=== PATIENT | female | born 1945 | race Caucasian/White ===

== ENCOUNTER 2023-09-11 13:40 | Outpatient (AMB) | payer MEDICARE, SELFPAY ==
[2023-09-11 14:17] VITALS: BP 136/80; PULSE 66; BMI 25.5
--- NOTE | 2023-09-11 14:17 | HO.NEPHOV_ITS ---
HPI HPI Comments History of Present Illness Details I had the privilege of seeing Kamila in follow-up of her chronic kidney disease stage 4. Her blood sugar is well controlled now. She does not have any joint pains or gout symptoms. She denies chest pain, shortness of breath, proximal nocturnal dyspnea, orthopnea, pedal edema, hypoglycemia or orthostatic symptoms. She does not take any nonsteroidal anti-inflammatory medications. Her urine output is good. She feels well but is concerned about her low GFR. She was accompanied by her in the office today. 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 Idiopathic gout Hyperlipidemia Essential hypertension Chronic kidney disease, stage 5 Anemia in chronic kidney disease Surgical History (Updated 09/11/23 @ 14:26 by Savanah Stoddard MA) Heart valve replaced Hx of CABG History of hip replacement History of open heart surgery History of cholecystectomy History of hysterectomy Presence of aortocoronary bypass graft Family History (Updated 09/11/23 @ 14:27 by Savanah Stoddard MA) Father Heart disease Mother Cancer (Updated 09/11/23 @ 14:27 by Savanah Stoddard MA) Alcohol intake: current Alcohol type: wine Patient Tobacco Use Status: Never used Tobacco Vital Signs 09/11/23 14:17 Height 5 ft 5 in Weight 153 lb 8 oz BMI 25.5 BP 136/80 Blood Pressure Location Lt brachial Position Sitting Pulse 66 Pulse Source Pulse Oximeter Physical Exam Vital Signs: Last Vital Signs Pulse 66 09/11/23 14:17 BP 136/80 09/11/23 14:17 BMI result Body Mass Index 25.5 Const General: comfortable and no acute distress Orientation/consciousness: patient oriented x3 HEENT Head: Yes normocephalic Mouth: Normal oral and palatal mucosa present Eyes EOM: EOMs intact bilaterally Neck Neck: Yes supple Resp Auscultation: clear to auscultation bilaterally Cardio Jugular venous distension: no JVD Rate: regular rate GI Palpation (GI): Soft to palpation Auscultation: normal bowel sounds General: Yes no CVA tenderness Back/Spine/Pelvis Back: no CVA tenderness Skin General skin exam: no rashes or lesions noted Neuro General: patient oriented x3 and moves all extremities Extrem General: Yes no pedal edema Assessment & Plan Assessment & Plan (1) CKD (chronic kidney disease) stage 4, GFR 15-29 ml/min: Code(s): N18.4 - Chronic kidney disease, stage 4 (severe) Plan Kamila has CKD stage 4. Her renal functions currently stable. Blood pressure is at goal. Her volume status is optimal. Her hemoglobin is over 11. She is a great candidate for Farxiga given diabetes, CKD and cardiac dysfunction. She avoids nonsteroidal anti-inflammatory medications. I did not make any medication changes today but had ordered blood work and urine studies. I intend initiate her on Farxiga at the next visit, if possible. All her and her 's questions were answered. Follow-up given. Time spent for retrieval of data, documentation and patient encounter 24 minutes. Orders: Orders Electrolytes 09/11/23 N18.4 - Chronic kidney disease, stage 4 (severe) Protein Creatinine Ratio, Ur 09/11/23 N18.4 - Chronic kidney disease, stage 4 (severe) Creatinine 09/11/23 N18.4 - Chronic kidney disease, stage 4 (severe) Blood Urea Nitrogen 09/11/23 N18.4 - Chronic kidney disease, stage 4 (severe) Coding Level of Care Code Est Pt Level 3 (32085) Diagnoses CKD (chronic kidney disease) stage 4, GFR 15-29 ml/min N18.4
== END 2023-09-11 15:16 | disposition home or self-care (01) ==
PROVIDERS: PCP Internal Medicine; Visit Provider Internal Medicine Nephrology
DX: N18.4 Chronic kidney disease, stage 4 (severe) (principal)
CPT/HCPCS: 99213

== ENCOUNTER → 2023-09-11 13:40 | Outpatient (BNVA) | payer MEDICARE, SELFPAY | PROVIDERS: PCP Internal Medicine; Visit Provider Internal Medicine Nephrology | DX: N18.4 Chronic kidney disease, stage 4 (severe) (principal) | CPT/HCPCS: 99212 ==

== ENCOUNTER 2023-12-13 10:52 | Outpatient (AMB) | payer MEDICARE, SELFPAY ==
--- NOTE | 2023-12-13 11:24 | HO.NEPHOV_ITS ---
HPI HPI Comments History of Present Illness Details I had the privilege of seeing Kamila in follow-up of her chronic kidney disease stage 4. Her blood sugar is well controlled now. She does not have any joint pains or gout symptoms. She denies chest pain, shortness of breath, proximal nocturnal dyspnea, orthopnea, pedal edema, hypoglycemia or orthostatic symptoms. She does not take any nonsteroidal anti-inflammatory medications. Her urine output is good. She had not been strict with a low-sodium diet and has gained a few lb without any edema or shortness of breath. There were no new active complaints at the time of this office visit. 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 Idiopathic gout Hyperlipidemia Essential hypertension Chronic kidney disease, stage 5 Anemia in chronic kidney disease Surgical History Heart valve replaced Hx of CABG History of hip replacement History of open heart surgery History of cholecystectomy History of hysterectomy Presence of aortocoronary bypass graft Family History Father Heart disease Mother Cancer Social History Alcohol intake: current Alcohol type: wine Patient Tobacco Use Status: Never used Tobacco Vital Signs 12/13/23 11:25 Height 5 ft 5 in Weight 164 lb 4 oz BMI 27.3 BP 160/72 H Blood Pressure Location Rt brachial Position Sitting Pulse 62 Pulse Source Pulse Oximeter Pulse Oximetry (%) 97 Oxygen Delivery Method Room Air Physical Exam Vital Signs: Last Vital Signs Pulse 62 12/13/23 11:25 BP 160/72 H 12/13/23 11:25 Pulse Ox 97 12/13/23 11:25 Oxygen Delivery Method Room Air 12/13/23 11:25 BMI result Body Mass Index 27.3 Const General: comfortable and no acute distress Orientation/consciousness: patient oriented x3 HEENT Head: Yes normocephalic Mouth: Normal oral and palatal mucosa present Eyes EOM: EOMs intact bilaterally Neck Neck: Yes supple Resp Auscultation: clear to auscultation bilaterally Cardio Jugular venous distension: no JVD Rate: regular rate GI Palpation (GI): Soft to palpation Auscultation: normal bowel sounds General: Yes no CVA tenderness Back/Spine/Pelvis Back: no CVA tenderness Skin General skin exam: no rashes or lesions noted Neuro General: patient oriented x3 and moves all extremities Extrem General: Yes no pedal edema Assessment & Plan Assessment & Plan (1) CKD (chronic kidney disease) stage 4, GFR 15-29 ml/min: Code(s): N18.4 - Chronic kidney disease, stage 4 (severe) (2) Essential hypertension: Code(s): I10 - Essential (primary) hypertension Plan Kamila has CKD stage 4. Her renal functions had been stable. I ordered a 24 hour urine collection for creatinine clearance. Blood pressure is at goal. Her volume status is optimal. Her hemoglobin is close to goal. She is a great candidate for Farxiga given diabetes, CKD and cardiac dysfunction. I shall initiate her on it if her GFR is appropriate based on the next 24 hour urine collection for creatinine clearance she is doing prior to next office visit. She avoids nonsteroidal anti-inflammatory medications. I did not make any medication changes today but had ordered blood work and urine studies. All her and her 's questions were answered. Follow-up given. Orders: Orders Creatinine Clearance Urine 12/13/23 N18.4 - Chronic kidney disease, stage 4 (severe) Coding Level of Care Code Est Pt Level 3 (22298) Diagnoses CKD (chronic kidney disease) stage 4, GFR 15-29 ml/min N18.4 Essential hypertension I10 Results Reviewed Nephrology Results: No Data to Display
[2023-12-13 11:25] VITALS: BP 160/72; PULSE 62; O2SAT 97; BMI 27.3
== END 2023-12-13 12:04 | disposition home or self-care (01) ==
PROVIDERS: PCP Internal Medicine; Visit Provider Internal Medicine Nephrology
DX: I12.9 Hypertensive chronic kidney disease with stage 1 through stage 4 chronic kidney disease, or unspecified chronic kidney disease (principal); N18.4 Chronic kidney disease, stage 4 (severe)
CPT/HCPCS: 99213

== ENCOUNTER → 2023-12-13 10:52 | Outpatient (BNVA) | payer MEDICARE, SELFPAY | PROVIDERS: PCP Internal Medicine; Visit Provider Internal Medicine Nephrology | DX: I12.9 Hypertensive chronic kidney disease with stage 1 through stage 4 chronic kidney disease, or unspecified chronic kidney disease (principal); N18.4 Chronic kidney disease, stage 4 (severe) | CPT/HCPCS: 99212 ==

== ENCOUNTER 2024-01-08 13:21 | Outpatient (AMB) | payer MEDICARE, SELFPAY ==
--- NOTE | 2024-01-08 13:35 | HO.NEPHOV ---
HPI HPI Comments History of Present Illness Details I had the privilege of seeing Kamila in follow-up of her chronic kidney disease stage 4. Her blood sugar is well controlled now. She does not have any joint pains or gout symptoms. She denies chest pain, shortness of breath, proximal nocturnal dyspnea, orthopnea, pedal edema, hypoglycemia or orthostatic symptoms. She does not take any nonsteroidal anti-inflammatory medications. Her urine output is good. She had not been strict with a low-sodium diet and has gained a few lb without any edema or shortness of breath. There were no new active complaints at the time of this office visit. 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 Idiopathic gout Hyperlipidemia Essential hypertension Chronic kidney disease, stage 5 Anemia in chronic kidney disease Surgical History Heart valve replaced Hx of CABG History of hip replacement History of open heart surgery History of cholecystectomy History of hysterectomy Presence of aortocoronary bypass graft Family History Father Heart disease Mother Cancer Social History Alcohol intake: current Alcohol type: wine Patient Tobacco Use Status: Never used Tobacco Vital Signs 01/08/24 13:36 Height 5 ft 5 in Weight 160 lb 4 oz BMI 26.7 BP 164/82 H Blood Pressure Location Lt brachial Position Sitting Pulse 62 Pulse Source Pulse Oximeter Pulse Oximetry (%) 98 Oxygen Delivery Method Room Air Physical Exam Vital Signs: Last Vital Signs Pulse 62 01/08/24 13:36 BP 164/82 H 01/08/24 13:36 Pulse Ox 98 01/08/24 13:36 Oxygen Delivery Method Room Air 01/08/24 13:36 BMI result Body Mass Index 26.7 Const General: comfortable and no acute distress Orientation/consciousness: patient oriented x3 HEENT Head: Yes normocephalic Mouth: Normal oral and palatal mucosa present Eyes EOM: EOMs intact bilaterally Neck Neck: Yes supple Resp Auscultation: clear to auscultation bilaterally Cardio Jugular venous distension: no JVD Rate: regular rate GI Palpation (GI): Soft to palpation Auscultation: normal bowel sounds General: Yes no CVA tenderness Back/Spine/Pelvis Back: no CVA tenderness Skin General skin exam: no rashes or lesions noted Neuro General: patient oriented x3 and moves all extremities Extrem General: Yes no pedal edema Assessment & Plan Assessment & Plan (1) CKD (chronic kidney disease) stage 4, GFR 15-29 ml/min: Code(s): N18.4 - Chronic kidney disease, stage 4 (severe) (2) Essential hypertension: Code(s): I10 - Essential (primary) hypertension Plan Kamila has CKD stage 4. Her renal functions had been stable. 24 hour urine collection for creatinine clearance showed it to be 16.2 mls/minute. Blood pressure is at goal. Her volume status is optimal. Her hemoglobin is close to goal. I started her on Farxiga 2.5 mg given diabetes, CKD and cardiac dysfunction. I asked her to reduce Lantus to 16 mts when she starts Farxiga. She avoids nonsteroidal anti-inflammatory medications. I did not make any other medication changes today but had ordered follow up blood work and urine studies. All her and her 's questions were answered. Orders: Orders Blood Urea Nitrogen Today I10 - Essential (primary) hypertension, N18.4 - Chronic kidney disease, stage 4 (severe) Electrolytes Today I10 - Essential (primary) hypertension, N18.4 - Chronic kidney disease, stage 4 (severe) Creatinine Today I10 - Essential (primary) hypertension, N18.4 - Chronic kidney disease, stage 4 (severe) Medications: New dapagliflozin propanediol (Farxiga) 2.5 mg (1/2 x 5 mg) PO DAILY 30 days 15 tabs 2RF Coding Level of Care Code Est Pt Level 4 (24000) Diagnoses CKD (chronic kidney disease) stage 4, GFR 15-29 ml/min N18.4 Essential hypertension I10 Results Reviewed Nephrology Results: No Data to Display
[2024-01-08 13:36] VITALS: BP 164/82; PULSE 62; O2SAT 98; BMI 26.7
== END 2024-01-08 14:15 | disposition home or self-care (01) ==
PROVIDERS: PCP Internal Medicine; Visit Provider Internal Medicine Nephrology
DX: I12.9 Hypertensive chronic kidney disease with stage 1 through stage 4 chronic kidney disease, or unspecified chronic kidney disease (principal); N18.4 Chronic kidney disease, stage 4 (severe)
CPT/HCPCS: 99214

== ENCOUNTER → 2024-01-08 13:21 | Outpatient (BNVA) | payer MEDICARE, SELFPAY | PROVIDERS: PCP Internal Medicine; Visit Provider Internal Medicine Nephrology | DX: I12.9 Hypertensive chronic kidney disease with stage 1 through stage 4 chronic kidney disease, or unspecified chronic kidney disease (principal); N18.4 Chronic kidney disease, stage 4 (severe) | CPT/HCPCS: 99212 ==

== ENCOUNTER 2024-03-06 09:19 | Outpatient (AMB) | payer MEDICARE, SELFPAY ==
--- NOTE | 2024-03-06 09:32 | HO.NEPHOV_ITS ---
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 Her blood sugar is well controlled now. She does not have any joint pains or gout symptoms. She denies chest pain, shortness of breath, proximal nocturnal dyspnea, orthopnea, pedal edema, hypoglycemia or orthostatic symptoms. She does not take any nonsteroidal anti-inflammatory medications. Her urine output is good. She had not been strict with a low-sodium diet and has gained a few lb without any edema or shortness of breath. There were no new active complaints at the time of this office visit. 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 Idiopathic gout Hyperlipidemia Essential hypertension Chronic kidney disease, stage 5 Anemia in chronic kidney disease Surgical History Heart valve replaced Hx of CABG History of hip replacement History of open heart surgery History of cholecystectomy History of hysterectomy Presence of aortocoronary bypass graft Family History Father Heart disease Mother Cancer Social History Alcohol intake: current Alcohol type: wine Patient Tobacco Use Status: Never used Tobacco Physical Exam Vital Signs: Last Vital Signs Pulse 61 03/06/24 09:33 BP 166/80 H 03/06/24 09:33 Pulse Ox 97 03/06/24 09:33 Oxygen Delivery Method Room Air 03/06/24 09:33 BMI result Body Mass Index 27.5 Const General: comfortable and no acute distress Orientation/consciousness: patient oriented x3 HEENT Head: Yes normocephalic Mouth: Normal oral and palatal mucosa present Eyes EOM: EOMs intact bilaterally Neck Neck: Yes supple Resp Auscultation: clear to auscultation bilaterally Cardio Jugular venous distension: no JVD Rate: regular rate GI Palpation (GI): Soft to palpation Auscultation: normal bowel sounds General: Yes no CVA tenderness Back/Spine/Pelvis Back: no CVA tenderness Skin General skin exam: no rashes or lesions noted Neuro General: patient oriented x3 and moves all extremities Extrem General: Yes no pedal edema Results Reviewed Nephrology Results: No Data to Display Assessment & Plan Assessment & Plan (1) CKD (chronic kidney disease) stage 4, GFR 15-29 ml/min: Code(s): N18.4 - Chronic kidney disease, stage 4 (severe) Category: Medical (2) Essential hypertension: Code(s): I10 - Essential (primary) hypertension Category: Medical Plan Kamila has CKD stage 4. Her renal functions had been stable. 24 hour urine collection for creatinine clearance showed it to be 16.2 mls/minute. Blood pressure is at goal. Her volume status is optimal. Her hemoglobin is close to goal. C/W with Farxiga 2.5 mg given diabetes, CKD and cardiac dysfunction. She avoids nonsteroidal anti-inflammatory medications. I did not make any other medication changes today but had ordered follow up blood work and urine studies. All her and her son's questions were answered. Orders: Orders Creatinine Today I10 - Essential (primary) hypertension, N18.4 - Chronic kidney disease, stage 4 (severe) Electrolytes Today I10 - Essential (primary) hypertension, N18.4 - Chronic kidney disease, stage 4 (severe) Complete Blood Count Auto Diff Today I10 - Essential (primary) hypertension, N18.4 - Chronic kidney disease, stage 4 (severe) Blood Urea Nitrogen Today I10 - Essential (primary) hypertension, N18.4 - Chronic kidney disease, stage 4 (severe) Calcium Today I10 - Essential (primary) hypertension, N18.4 - Chronic kidney disease, stage 4 (severe) Coding Level of Care Code Est Pt Level 4 (85600) Diagnoses CKD (chronic kidney disease) stage 4, GFR 15-29 ml/min N18.4 Essential hypertension I10
[2024-03-06 09:33] VITALS: BP 166/80; PULSE 61; O2SAT 97; BMI 27.5
== END 2024-03-06 09:58 | disposition home or self-care (01) ==
PROVIDERS: PCP Internal Medicine; Visit Provider Internal Medicine Nephrology
DX: I12.9 Hypertensive chronic kidney disease with stage 1 through stage 4 chronic kidney disease, or unspecified chronic kidney disease (principal); E11.22 Type 2 diabetes mellitus with diabetic chronic kidney disease; N18.4 Chronic kidney disease, stage 4 (severe)
CPT/HCPCS: 99214

== ENCOUNTER → 2024-03-06 09:19 | Outpatient (BNVA) | payer MEDICARE, SELFPAY | PROVIDERS: PCP Internal Medicine; Visit Provider Internal Medicine Nephrology | DX: I12.9 Hypertensive chronic kidney disease with stage 1 through stage 4 chronic kidney disease, or unspecified chronic kidney disease (principal); N18.4 Chronic kidney disease, stage 4 (severe) | CPT/HCPCS: 99212 ==

== ENCOUNTER 2024-06-10 09:30 | Outpatient (AMB) | payer MEDICARE, SELFPAY ==
[2024-06-10 09:31] VITALS: BP 150/72; PULSE 60; O2SAT 96; BMI 27.6
--- NOTE | 2024-06-10 09:31 | HO.NEPHOV_ITS ---
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 Her blood sugar is well controlled now. She does not have any joint pains or gout symptoms. She denies chest pain, shortness of breath, proximal nocturnal dyspnea, orthopnea, pedal edema, hypoglycemia or orthostatic symptoms. She does not take any nonsteroidal anti-inflammatory medications. Her urine output is good. There were no new active complaints at the time of this office visit. 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 Idiopathic gout Hyperlipidemia Essential hypertension Chronic kidney disease, stage 5 Anemia in chronic kidney disease Surgical History Heart valve replaced Hx of CABG History of hip replacement History of open heart surgery History of cholecystectomy History of hysterectomy Presence of aortocoronary bypass graft Family History Father Heart disease Mother Cancer Social History Alcohol intake: current Alcohol type: wine Patient Tobacco Use Status: Never used Tobacco Review of Systems Const All systems reviewed & are unremarkable except as noted in HPI and below Physical Exam Vital Signs: Last Vital Signs Pulse 60 06/10/24 09:31 BP 150/72 H 06/10/24 09:31 Pulse Ox 96 06/10/24 09:31 Oxygen Delivery Method Room Air 06/10/24 09:31 BMI result Body Mass Index 27.6 Const General: comfortable and no acute distress Orientation/consciousness: patient oriented x3 HEENT Head: Yes normocephalic Mouth: Normal oral and palatal mucosa present Eyes EOM: EOMs intact bilaterally Neck Neck: Yes supple Resp Auscultation: clear to auscultation bilaterally Cardio Jugular venous distension: no JVD Rate: regular rate GI Palpation (GI): Soft to palpation Auscultation: normal bowel sounds General: Yes no CVA tenderness Back/Spine/Pelvis Back: no CVA tenderness Skin General skin exam: no rashes or lesions noted Neuro General: patient oriented x3 and moves all extremities Extrem General: Yes no pedal edema Results Reviewed Nephrology Results: No Data to Display Assessment & Plan Assessment & Plan (1) CKD (chronic kidney disease) stage 4, GFR 15-29 ml/min: Code(s): N18.4 - Chronic kidney disease, stage 4 (severe) Category: Medical (2) Essential hypertension: Code(s): I10 - Essential (primary) hypertension Category: Medical Plan Kamila has CKD stage 4. Her renal functions had been stable. 24 hour urine collection for creatinine clearance showed it to be 16.2 mls/minute. Blood pressure has been at goal. Her volume status is optimal. Her hemoglobin is close to goal. C/W with Farxiga 2.5 mg given diabetes, CKD and cardiac dysf unction. She can continue Uloric. She avoids nonsteroidal anti-inflammatory medications. I did not make any other medication changes today but had ordered follow up blood work and urine studies. All her questions were answered. Orders: Orders Creatinine Today I10 - Essential (primary) hypertension, N18.4 - Chronic kidney disease, stage 4 (severe) Blood Urea Nitrogen Today I10 - Essential (primary) hypertension, N18.4 - Chronic kidney disease, stage 4 (severe) Electrolytes Today I10 - Essential (primary) hypertension, N18.4 - Chronic kidney disease, stage 4 (severe) Coding Level of Care Code Est Pt Level 4 (06934) Diagnoses CKD (chronic kidney disease) stage 4, GFR 15-29 ml/min N18.4 Essential hypertension I10
== END 2024-06-10 10:12 | disposition home or self-care (01) ==
PROVIDERS: PCP Internal Medicine; Visit Provider Internal Medicine Nephrology
DX: I12.9 Hypertensive chronic kidney disease with stage 1 through stage 4 chronic kidney disease, or unspecified chronic kidney disease (principal); E11.22 Type 2 diabetes mellitus with diabetic chronic kidney disease; N18.4 Chronic kidney disease, stage 4 (severe)
CPT/HCPCS: 99214

== ENCOUNTER → 2024-06-10 09:30 | Outpatient (BNVA) | payer MEDICARE, SELFPAY | PROVIDERS: PCP Internal Medicine; Visit Provider Internal Medicine Nephrology | DX: I12.9 Hypertensive chronic kidney disease with stage 1 through stage 4 chronic kidney disease, or unspecified chronic kidney disease (principal); N18.4 Chronic kidney disease, stage 4 (severe) | CPT/HCPCS: 99212 ==

== ENCOUNTER 2024-09-09 10:37 | Outpatient (AMB) | payer MEDICARE, SELFPAY ==
--- NOTE | 2024-09-09 10:49 | HO.NEPHOV_ITS ---
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 Her blood sugar is well controlled now. She does not have any joint pains or gout symptoms. She denies chest pain, shortness of breath, proximal nocturnal dyspnea, orthopnea, pedal edema, hypoglycemia or orthostatic symptoms. She does not take any nonsteroidal anti-inflammatory medications. Her urine output is good. There were no new active complaints at the time of this office visit. 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 Idiopathic gout Hyperlipidemia Essential hypertension Chronic kidney disease, stage 5 Anemia in chronic kidney disease Surgical History Heart valve replaced Hx of CABG History of hip replacement History of open heart surgery History of cholecystectomy History of hysterectomy Presence of aortocoronary bypass graft Family History Father Heart disease Mother Cancer Social History Alcohol intake: current Alcohol type: wine Patient Tobacco Use Status: Never used Tobacco Review of Systems Const All systems reviewed & are unremarkable except as noted in HPI and below Physical Exam Vital Signs: Last Vital Signs Pulse 62 09/09/24 10:52 BP 158/70 H 09/09/24 10:52 Pulse Ox 96 09/09/24 10:52 Oxygen Delivery Method Room Air 09/09/24 10:52 BMI result Body Mass Index 28.3 Const General: comfortable and no acute distress Orientation/consciousness: patient oriented x3 HEENT Head: Yes normocephalic Mouth: Normal oral and palatal mucosa present Eyes EOM: EOMs intact bilaterally Neck Neck: Yes supple Resp Auscultation: clear to auscultation bilaterally Cardio Jugular venous distension: no JVD Rate: regular rate GI Palpation (GI): Soft to palpation Auscultation: normal bowel sounds General: Yes no CVA tenderness Back/Spine/Pelvis Back: no CVA tenderness Skin General skin exam: no rashes or lesions noted Neuro General: patient oriented x3 and moves all extremities Extrem General: Yes no pedal edema Results Reviewed Nephrology Results: No Data to Display Assessment & Plan Assessment & Plan (1) CKD (chronic kidney disease) stage 4, GFR 15-29 ml/min: Code(s): N18.4 - Chronic kidney disease, stage 4 (severe) Category: Medical (2) Essential hypertension: Code(s): I10 - Essential (primary) hypertension Category: Medical Plan Kamila has CKD stage 4. Her renal functions had been stable. LAst 24 hour urine collection for creatinine clearance showed it to be 16.2 mls/minute. Blood pressure has been at goal. Her volume status is optimal. Her hemoglobin is close to goal. C/W with Farxiga 2.5 mg given diabetes, CKD and cardiac dysfunction. She can continue Uloric. She avoids nonsteroidal anti-inflammatory medications. I did not make any other medication changes today but had ordered follow up blood work and urine studies. All her questions were answered. Orders: Orders Blood Urea Nitrogen 4 Months I10 - Essential (primary) hypertension, N18.4 - Chronic kidney disease, stage 4 (severe) Electrolytes 4 Months I10 - Essential (primary) hypertension, N18.4 - Chronic kidney disease, stage 4 (severe) Creatinine 4 Months I10 - Essential (primary) hypertension, N18.4 - Chronic kidney disease, stage 4 (severe) Coding Level of Care Code Est Pt Level 4 (19724) Diagnoses CKD (chronic kidney disease) stage 4, GFR 15-29 ml/min N18.4 Essential hypertension I10
[2024-09-09 10:52] VITALS: BP 120/80; PULSE 62; O2SAT 96; BMI 28.3
== END 2024-09-09 11:27 | disposition home or self-care (01) ==
PROVIDERS: PCP Internal Medicine; Visit Provider Internal Medicine Nephrology
DX: I12.9 Hypertensive chronic kidney disease with stage 1 through stage 4 chronic kidney disease, or unspecified chronic kidney disease (principal); N18.4 Chronic kidney disease, stage 4 (severe)
CPT/HCPCS: 99214

== ENCOUNTER → 2024-09-09 10:37 | Outpatient (BNVA) | payer MEDICARE, SELFPAY | PROVIDERS: PCP Internal Medicine; Visit Provider Internal Medicine Nephrology | DX: I12.9 Hypertensive chronic kidney disease with stage 1 through stage 4 chronic kidney disease, or unspecified chronic kidney disease (principal); N18.4 Chronic kidney disease, stage 4 (severe) | CPT/HCPCS: 99212 ==

== ENCOUNTER 2025-01-22 09:18 | Outpatient (AMB) | payer MEDICARE, SELFPAY ==
--- NOTE | 2025-01-22 09:31 | HO.NEPHOV ---
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 Her blood sugar is well controlled now. She does not have any joint pains or gout symptoms. She denies chest pain, shortness of breath, proximal nocturnal dyspnea, orthopnea, pedal edema, hypoglycemia or orthostatic symptoms. She does not take any nonsteroidal anti-inflammatory medications. Her urine output is good. There were no new active complaints at the time of this office visit. 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 Idiopathic gout Hyperlipidemia Essential hypertension Chronic kidney disease, stage 5 Anemia in chronic kidney disease Surgical History Heart valve replaced Hx of CABG History of hip replacement History of open heart surgery History of cholecystectomy History of hysterectomy Presence of aortocoronary bypass graft Family History Father Heart disease Mother Cancer Social History Alcohol intake: current Alcohol type: wine Patient Tobacco Use Status: Never used Tobacco Review of Systems Const All systems reviewed & are unremarkable except as noted in HPI and below Physical Exam Vital Signs: Last Vital Signs Pulse 60 01/22/25 09:32 BP 160/78 H 01/22/25 09:32 Pulse Ox 98 01/22/25 09:32 Oxygen Delivery Method Room Air 01/22/25 09:32 BMI result Body Mass Index 27.1 Const General: comfortable and no acute distress Orientation/consciousness: patient oriented x3 HEENT Head: Yes normocephalic Mouth: Normal oral and palatal mucosa present Eyes EOM: EOMs intact bilaterally Neck Neck: Yes supple Resp Auscultation: clear to auscultation bilaterally Cardio Jugular venous distension: no JVD Rate: regular rate GI Palpation (GI): Soft to palpation Auscultation: normal bowel sounds Skin General skin exam: no rashes or lesions noted Neuro General: patient oriented x3 and moves all extremities Extrem General: Yes no pedal edema Results Reviewed Nephrology Results: No Data to Display Assessment & Plan Assessment & Plan (1) CKD (chronic kidney disease) stage 4, GFR 15-29 ml/min: Code(s): N18.4 - Chronic kidney disease, stage 4 (severe) Category: Medical (2) Essential hypertension: Code(s): I10 - Essential (primary) hypertension Category: Medical Plan Kamila has CKD stage 4. Her renal functions had been stable. LAst 24 hour urine collection for creatinine clearance showed it to be 16.2 mls/minute. Blood pressure has been at goal. Her volume status is optimal. Her hemoglobin is close to goal. C/W with Farxiga 2.5 mg given diabetes, CKD and cardiac dysfunction. She can continue Uloric. She avoids nonsteroidal anti-inflammatory medications. I did not make any other medication changes today but had ordered follow up blood work and urine studies. All her questions were answered. Orders: Orders Electrolytes 4 Months I10 - Essential (primary) hypertension, N18.4 - Chronic kidney disease, stage 4 (severe) Creatinine 4 Months I10 - Essential (primary) hypertension, N18.4 - Chronic kidney disease, stage 4 (severe) Ferritin 4 Months I10 - Essential (primary) hypertension, N18.4 - Chronic kidney disease, stage 4 (severe) IRON PROFILE 4 Months I10 - Essential (primary) hypertension, N18.4 - Chronic kidney disease, stage 4 (severe) Complete Blood Count Auto Diff 4 Months I10 - Essential (primary) hypertension, N18.4 - Chronic kidney disease, stage 4 (severe) Blood Urea Nitrogen 4 Months I10 - Essential (primary) hypertension, N18.4 - Chronic kidney disease, stage 4 (severe) Calcium 4 Months I10 - Essential (primary) hypertension, N18.4 - Chronic kidney disease, stage 4 (severe) Parathyroid Hormone Intact 4 Months I10 - Essential (primary) hypertension, N18.4 - Chronic kidney disease, stage 4 (severe) Phosphorus 4 Months I10 - Essential (primary) hypertension, N18.4 - Chronic kidney disease, stage 4 (severe) Coding Level of Care Code Est Pt Level 4 (92578) Diagnoses CKD (chronic kidney disease) stage 4, GFR 15-29 ml/min N18.4 Essential hypertension I10
[2025-01-22 09:32] VITALS: BP 160/78; PULSE 60; O2SAT 98; BMI 27.1
== END 2025-01-22 10:06 | disposition home or self-care (01) ==
LOC: HO.HKAS 09:19
PROVIDERS: PCP Internal Medicine; Visit Provider Internal Medicine Nephrology
DX: I12.9 Hypertensive chronic kidney disease with stage 1 through stage 4 chronic kidney disease, or unspecified chronic kidney disease (principal); N18.4 Chronic kidney disease, stage 4 (severe)
CPT/HCPCS: 99214

== ENCOUNTER → 2025-01-22 09:18 | Outpatient (BNVA) | payer MEDICARE, SELFPAY | PROVIDERS: PCP Internal Medicine; Visit Provider Internal Medicine Nephrology | DX: I12.9 Hypertensive chronic kidney disease with stage 1 through stage 4 chronic kidney disease, or unspecified chronic kidney disease (principal); N18.4 Chronic kidney disease, stage 4 (severe) | CPT/HCPCS: 99212 ==

== ENCOUNTER 2025-05-28 09:24 | Outpatient (AMB) | payer MEDICARE, SELFPAY ==
--- NOTE | 2025-05-28 09:32 | HO.NEPHOV ---
Vital Signs 05/28/25 09:35 Height 5 ft 5 in Weight 164 lb 6 oz BMI 27.4 BP 140/70 H Blood Pressure Location Lt brachial Position Sitting Pulse 61 Pulse Source Pulse Oximeter Pulse Oximetry (%) 95 Oxygen Delivery Method Room Air Intake Visit Reasons: 4mon follow-up w/labs-Conf Claims Associate Required: No Accompanied by: Spouse Allergies sulfamethoxazole (From Bactrim) Allergy (Unknown, Verified 05/28/25 09:34) Unknown trimethoprim (From Bactrim) Allergy (Unknown, Verified 05/28/25 09:34) Unknown HPI Comments Details: Kamila was seen in follow-up of her chronic kidney disease stage 4. Her blood sugar is well controlled now. She does not have any joint pains or gout symptoms. She denies chest pain, shortness of breath, proximal nocturnal dyspnea, orthopnea, pedal edema, hypoglycemia or orthostatic symptoms. She does not take any nonsteroidal anti-inflammatory medications. Her urine output is good. There were no new active complaints at the time of this office visit. 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 Idiopathic gout Hyperlipidemia Essential hypertension Chronic kidney disease, stage 5 Anemia in chronic kidney disease Surgical History Heart valve replaced Hx of CABG History of hip replacement History of open heart surgery History of cholecystectomy History of hysterectomy Presence of aortocoronary bypass graft Family History Father Heart disease Mother Cancer Social History Alcohol intake: current Alcohol type: wine Patient Tobacco Use Status: Never used Tobacco Review of Systems Const All systems reviewed & are unremarkable except as noted in HPI and below Physical Exam Vital Signs: Last Vital Signs Pulse 61 05/28/25 09:35 BP 140/70 H 05/28/25 09:35 Pulse Ox 95 05/28/25 09:35 Oxygen Delivery Method Room Air 05/28/25 09:35 BMI result Body Mass Index 27.4 Const General: comfortable and no acute distress Orientation/consciousness: patient oriented x3 HEENT Head: Yes normocephalic Mouth: Normal oral and palatal mucosa present Eyes EOM: EOMs intact bilaterally Neck Neck: Yes supple Resp Auscultation: clear to auscultation bilaterally Cardio Jugular venous distension: no JVD Rate: regular rate GI Palpation (GI): Soft to palpation Auscultation: normal bowel sounds General: Yes no CVA tenderness Back/Spine/Pelvis Back: no CVA tenderness Skin General skin exam: no rashes or lesions noted Neuro General: patient oriented x3 and moves all extremities Extrem General: Yes no pedal edema Assessment & Plan Assessment & Plan (1) CKD (chronic kidney disease) stage 4, GFR 15-29 ml/min: Code(s): N18.4 - Chronic kidney disease, stage 4 (severe) Category: Medical (2) Essential hypertension: Code(s): I10 - Essential (primary) hypertension Category: Medical Plan Kamila has CKD stage 4. Her renal functions had been stable. Last 24 hour urine collection for creatinine clearance showed it to be 16.2 mls/minute. Blood pressure has been at goal. Her volume status is optimal. Her hemoglobin is close to goal. C/W with Farxiga 2.5 mg given diabetes, CKD and cardiac dysfunction. She can continue Uloric. She avoids nonsteroidal anti-inflammatory medications. I did not make any other medication changes today but had ordered follow up blood work and urine studies. All her questions were answered. Orders: Orders Blood Urea Nitrogen 4 Months I10 - Essential (primary) hypertension, N18.4 - Chronic kidney disease, stage 4 (severe) Electrolytes 4 Months I10 - Essential (primary) hypertension, N18.4 - Chronic kidney disease, stage 4 (severe) Calcium 4 Months I10 - Essential (primary) hypertension, N18.4 - Chronic kidney disease, stage 4 (severe) Complete Blood Count Auto Diff 4 Months I10 - Essential (primary) hypertension, N18.4 - Chronic kidney disease, stage 4 (severe) Creatinine 4 Months I10 - Essential (primary) hypertension, N18.4 - Chronic kidney disease, stage 4 (severe) Vitamin D 25-OH Total 4 Months I10 - Essential (primary) hypertension, N18.4 - Chronic kidney disease, stage 4 (severe) Parathyroid Hormone Intact 4 Months I10 - Essential (primary) hypertension, N18.4 - Chronic kidney disease, stage 4 (severe) Ferritin 4 Months I10 - Essential (primary) hypertension, N18.4 - Chronic kidney disease, stage 4 (severe) IRON PROFILE 4 Months I10 - Essential (primary) hypertension, N18.4 - Chronic kidney disease, stage 4 (severe) Medications: New allopurinol 100 mg PO DAILY 90 tabs 3RF Coding Level of Care Code Est Pt Level 4 (80808) Diagnoses CKD (chronic kidney disease) stage 4, GFR 15-29 ml/min N18.4 Essential hypertension I10
[2025-05-28 09:35] VITALS: BP 140/70; PULSE 61; O2SAT 95; BMI 27.4
--- OUTSIDE RECORDS SUMMARY | 2025-05-28 09:43 | XMS_ITS | Clinical Summary ---
Author Organization [facility] Address [address] [place] [id number] Phone Care Team Providers Care Shopper Insights Manager Name Role Phone Solomon Juarez MD Primary Care Provider [phone] Medications cyclophosphamide (CYTOXAN) 50 mg CapIndications:g ranulomatosis with polyangiitis Take 50 mg by mouth daily. Reported on 03/08/2017 Indications: Michael's Granulomatosis Active omeprazole (PRILOSEC) 20 MG capsuleIndicatio ns:prevention of stress ulcer Take 20 mg by mouth daily. Reported on 03/08/2017 Indications: Prevention of Stress Ulcer Active atorvastatin (LIPITOR) 40 MG tabletIndication s:hyperlipidemia Take 10 mg by mouth daily. Indications: HYPERLIPIDEMIA Active levothyroxine (SYNTHROID, LEVOTHROID) 100 MCG tabletIndication s:hypothyroidism Take 100 mcg by mouth daily. Indications: HYPOTHYROIDISM Active NIFEdipine (PROCARDIA XL) 30 MG 24 hr tabletIndication s:hypertension Take 90 mg by mouth daily. Indications: Hypertension Active hydroCHLOROthiaz elkin (HYDRODIURIL) 25 MG tabletIndication s:hypertension Take 25 mg by mouth daily. Indications: Hypertension Active insulin glargine (LANTUS) 100 unit/mL (3 mL) InPn injection penIndications:t ype 2 diabetes mellitus Inject 15 Units under the skin daily before breakfast. 15 units for BS <200 20 units for BS >200 Indications: TYPE 2 DIABETES MELLITUS Active insulin lispro (HUMALOG) 100 unit/mL InPn injection penIndications:t ype 2 diabetes mellitus Inject 10 Units under the skin daily with dinner. Indications: TYPE 2 DIABETES MELLITUS Active ciprofloxacin HCl (CIPRO) 250 MG tablet Take 1 tablet (250 mg total) by mouth 2 (two) times a day. 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 Not on shirley e 03/03/2023 Are you concerned about learning? Not on file 03/03/2023 No 03/03/2023 No 03/03/2023 Digital Access Answer Date Recorded No 03/24/2023 No 03/24/2023 No 03/24/2023 Reliable internet access at home? Not on file 03/24/2023 Device with a working camera? Not on file Comments No Sex and Gender Information Value Date Recorded Sex Assigned at Not on file Legal Sex Female 5:54 PM EST Gender Identity Not on file Sexual Orientation Not on file Last Filed Vital Signs Vital Sign Reading Time Taken Comments Blood Pressure 157/67 05/31/2017 1:05 PM EDT Pulse 84 05/31/2017 1:05 PM EDT Temperature 36.8 C (98.2 F) 05/31/2017 1:05 PM EDT Respiratory Rate 16 05/31/2017 1:05 PM EDT Oxygen Saturation 98% 05/31/2017 1:05 PM EDT Inhaled Oxygen Concentration - - Weight 75.2 kg (165 lb 12.8 oz) 05/31/2017 1:05 PM EDT Height 165.1 cm (5' 5 ) 05/31/2017 1:05 PM EDT Body Mass Index 27.59 05/31/2017 1:05 PM EDT Plan of Treatment Health Maintenance Due Date Last Done Comments Adult Td,Tdap Booster 1945 BLOOD PRESSURE 1944 DEPRESSION SCREENING 1956 PNEUMOCOCCAL VACCINES (50+ years) (1 of 2 - PCV) 1963 ZOSTER VACCINES (1 of 2) 1963 OSTEOPOROSIS SCREENING INITI AL (ONE-TIME) 2009 DIABETIC EYE EXAM 11/06/2016 HEMOGLOBIN A1C 02/04/2017 11/06/2016 POTASSIUM LEVEL 05/31/2018 05/31/2017, 12/11/2016, 11/06/2016 TSH LEVEL 05/31/2018 05/31/2017, 12/11/2016 RSV VACCINE (1 - 1-dose 75+ series) 2019 COVID-19 VACCINE (2 - Modern a risk series) 09/29/2021 09/01/2021 SMOKING STATUS SCREENING (On ce After 26 Yrs) Completed 05/31/2017 HEPATITIS A VACCINES Aged Out No long er eligible based on patient's age to complete this topic HIB VACCINES Aged Out No longer eligi ble based on patient's age to complete this topic MENINGOCOCCAL VACCINES (ACWY) Aged Out No longer eligible based on patient's age to complete this topic MENINGOCOCCAL VACCINES (B) Aged Out N o longer eligible based on patient's age to complete this topic Medical Devices Not on file Procedures Procedure Name Priority Date/Time Associated Diagnosis Comments TSH Routine 05/31/2017 1:35 PM EDT Type 2 DM with CKD and hypertension Chronic renal failure, stage 5 Michael's granulomatosis with renal involvement Acute renal failure COMPREHENSIVE METABOLIC PANEL Routine 05/31/2017 1:35 PM EDT Type 2 DM with CKD and hypertension Chronic renal failure, stage 5 Michael's granulomatosis with renal involvement Acute renal failure HEMOGLOBIN A1C Routine 11/06/2016 2:39 PM EST Michael's granulomatosis with renal involvement from Last 3 Months or Most Recently Relevant to Health Maintenance Results * (ABNORMAL) Comprehensive metabolic panel (05/31/2017 1:35 PM EDT) SODIUM 142 135 - 145 mmol/L [facility] POTASSIUM 4.5 3.4 - 5.0 mmol/L [facility] CHLORIDE 104 98 - 108 mmol/L [facility] CO2 19(L) 23 - 32 mmol/L [facility] BUN 43(H) 8 - 25 mg/dL [facility] CREATININE 2.86(H) 0.60 - 1.50 mg/dL [facility] GLUCOSE 166(H) 70 - 110 mg/dL [facility] ALBUMIN 4.5 3.3 - 5.0 g/dL [facility] TOTAL PROTEIN 6.9 6.0 - 8.3 g/dL [facility] CALCIUM 9.6 8.5 - 10.5 mg/dL [facility] ALKALINE PHOSPHATASE 51 30 - 100 U/L [facility] TOTAL BILIRUBIN 0.2 0.0 - 1.0 mg/dL [facility] AST 16 9 - 32 U/L [facility] ALT 14 7 - 33 U/L [facility] GLOBULIN 2.4 1.9 - 4.1 g/dL [facility] EGFR 16(A) >60 mL/min/1. 73m2 [facility] Comment:Abnormal result. The normal range for eGFR is >60 mL/min/1.73m2. If this patient is -Luxembourger, please multiply the reported result by 1.21 ANION GAP 19(H) 3 - 17 mmol/L [facility] Blood 05/31/2017 1:35 PM EDT 05/31/2017 9:37 PM EDT us Jimmy Sanchez MD LAB BLOOD ORDERABLES Final Resul t [facility] [address] [place] [address] * TSH (05/31/2017 1:35 PM EDT) TSH 1.71 0.40 - 5.00 uIU/mL [facility] Blood 05/31/2017 1:35 PM EDT 05/31/2017 9:36 PM EDT us Jimmy Sanchez MD LAB BLOOD ORDERABLES Final Resul t Performing Organization Address City/[facility] Co de Phone Number [address] [id number] * (ABNORMAL) Hemoglobin A1c (11/06/2016 2:39 PM EST) HEMOGLOBIN A1C 9.4(H) 4.3 - 6.4 % [facility] CALC MEAN BLD GLUC 223 mg/dL [facility] Comment: There is no established normal range for the CMBG (Calculated Mean Blood Glucose). A hemoglobin A1c < 7% is the recommended target for most people with diabetes. The CMBG for an A1c of 7% is 154 mg/dL. The diagnostic hemoglobin A1c level for diabetes is greater than or equal to 6.5% which is a CMBG greater than or equal to 140 mg/dL. Blood 11/06/2016 2:39 PM EST 11/06/2016 5:57 PM EST us Jimmy Sanchez MD LAB BLOOD ORDERABLES Final Resul t Performing Organization Address City/State/[facility] Co de Phone Number [address] [phone] from Last 3 Months or Most Recently Relevant to Health Maintenance Insurance [employer] [place] P[place] BLUE REPLACEMENT [facility] MEDICARE PPO BLUE REPLACEMENT [facility] MEDICARE PPO BLUE REPLACEMENT [facility] MEDICARE PPO BLUE REPLACEMENT [facility] MEDICARE PPO BLUE REPLACEMENT [facility] MEDICARE PPO BLUE REPLACEMENT [facility] MEDICARE PPO BLUE REPLACEMENT [facility] MEDICARE PPO BLUE REPLACEMENT [employer] [place] BLUE [place]AC[place] Care Teams Shopper Insights Manager Relationship Specialty Start Date End Date Solomon Juarez MD [address] [place] [phone] PCP - General Internal Medicine 11/06/16 Additional Source Comments The information contained in this document represents components of the legal health record. It is not the complete legal health record.[facility]
--- OUTSIDE RECORDS SUMMARY | 2025-05-28 09:43 | XMS_ITS | Clinical Summary ---
Author Organization [facility] Facility Address [address] [address] Care Team Providers Care Clay Hoister Name Role Phone Solomon Juarez MD Primary Care Provider [phone] Allergies Active Allergy Reactions Criticality Noted Date Comments Nitrofurantoin Nausea And Vomiting 10/11/2022 Sulfamethoxazole-Trimethoprim Other (see comments) 03/11/2021 Medications levothyroxine (SYNTHROID, LEVOTHROID) 100 MCG tablet Take 100 mcg by mouth daily sunday- Sunday Active insulin glargine (Lantus SoloStar) 100 UNIT/ML injection Inject 10 Units under the skin every morning Active clopidogrel (PLAVIX) 75 MG tablet Take 75 mg by mouth 08/14/2022 Active torsemide (DEMADEX) 20 MG tablet Take 20 mg by mouth 1 (one) time each day 09/25/2022 Active metoprolol tartrate 25 MG tablet 10/10/2022 Active aspirin (ST MARVEL) 81 MG EC tablet Take 81 mg by mouth 1 (one) time each day Active amLODIPine (NORVASC) 2.5 MG tablet TAKE ONE TABLET BY MOUTH EVERY DAY 90 tablet 3 11/14/2023 Active Active Problems Problem Noted Date Diagnosed Date Heart failure with normal ejection fraction 09/28 Anemia of renal disease 07/11/2022 Hypertensive 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 03/11/2021 Chronic kidney disease, stage 4 (severe) 021 Renal osteodystrophy 03/11/2021 Type 2 diabetes mellitus wit h diabetic chronic kidney disease 03/11/2021 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 Resolved Problems Problem Noted Date Diagnosed Date Resolved Date Acidosis 03/11/2021 07/08/2021 Active immunization 03/11/2021 07/08/20 21 Chronic kidney disease, stage 2 (mild) 02/09/2021 07/08/2021 History of total hip arthroplasty 11/06/2016 07/08/2021 Overview (03/11/2021): Right 04/2015 Hypothyroidism 11/06/2016 07/08/2021 Type 2 diabetes mellitus 11/06/201607/2021 Michael's granulomatosis wit h renal involvement 11/06/2016 07/08/2021 Immunizations Immunization Administration Dates Next Due Influenza, Quadrivalent, Wit h Preservative 08/31/2016 Influenza, Unspecified 07/04/2022,2020,07/06/2020,2018,07/18/2018,08/13/2017 Moderna SARS-COV-2 09/01/2021 Pneumococcal Conjugate 13-Valent 09/06/2016 Family History Medical History Relation Comments Heart disease Father Hypertension Father Cancer Mother breast (metastas ized) Relation Status Comments Father Mother Social History Tobacco Use Types Packs/Day Years Used Date Smoking Tobacco: Former Cigarettes 0 10/29/1969 - 10/29/1979 Tobacco Cessation:Counseling Given: Not Answered Comments:Smoking History Info:Unknown Alcohol Use Standard Drinks/Week Comments Yes 7 (1 standard drink = 0.6 oz pure alcohol) Alcoholic Drinks/day: 1-2 drinks per day Comments Unknown Sex and Gender Information Value Date Recorded Sex Assigned at Not on file Legal Sex Female 4:46 PM EST Gender Identity Not on file Sexual Orientation Not on file Last Filed Vital Signs Vital Sign Reading Time Taken Comments Blood Pressure 136/70 04/04/2023 1:17 PM EDT Pulse 64 04/04/2023 1:17 PM EDT Temperature - - Respiratory Rate - - Oxygen Saturation 98% 04/04/2023 1:17 PM EDT Inhaled Oxygen Concentration - - Weight 71.5 kg (157 lb 9.6 oz) 04/04/2023 1:17 P M EDT Height 165.1 cm (5' 5 ) 07/08/2021 2:33 PM EDT Body Mass Index 26.23 07/08/2021 2:33 PM EDT Plan of Treatment Health Maintenance Due Date Last Done Comments Pneumococcal Vaccine: 50+ Years (2 of 2 - PPSV23, PCV20, or PCV21) 11/01/2016 09/06/2016 Diabetes: Hemoglobin A1C 11/26/2020 Diabetes: Ophthalmology Exam 11/26/2020 Diabetes: Pedal Pulse Checked 11/26/2020 Diabetes: Sensory Foot Exam 11/26/2020 Diabetes: Visual Foot Exam 11/26/2020 Influenza Vaccine (#1) 2025 2, 07/25/2021, 07/06/2020, Additional history exists Pneumococcal Vaccine: Peds (0 to 5 Years) and At-Risk Patients (6 to 49 Years) Discontinued 09/06/2016 Hepatitis B Vaccine Aged Out No longe r eligible based on patient's age to complete this topic Insurance [facility] Care Teams Clay Hoister Relationship Specialty Start Date End Date Solomon Juarez MD [address] [place] [address], [address] [place] [address] PCP - General Internal Medicine 04/04/23
--- OUTSIDE RECORDS SUMMARY | 2025-05-28 09:43 | XMS_ITS | Patient Health Record ---
Author Organization [facility] Address [address] [place] [address] Care Team Providers Care Water Resource Consultant Name Role Phone Solomon Juarez MD Primary Care Provider Kaitlynn Zhao Unavailable [phone] Allergies Allergen (clinical drug ingredient) Drug/Non Drug Allergy documented on EMR Reaction Allergy Type Onset Date Status sulfamethoxazole / trimethoprim Bactrim Unknown Drug Allergy Active Reason For Referral No Information Medications Medication SIG (Take, Route, Frequency, Duration) Notes Start Date End Date Status hydroCHLOROthiazide Active Levothyroxine Sodium 100 MCG TAKE ONE TA BLET BY MOUTH EVERY DAY Oral; Duration: 30 Active Atorvastatin Calcium Active Humalog Pen Active Extra Depth Orthopedic Shoes (1 Pair) with Customized Heat Molded Multidensity Innersoles (3 Pair) as directed Dx: IDDM/Polyneuropathy (E10.42), Hammertoe Foot Deformity (M20.41,M20.42), Preulcerative Skin Lesion(s) (L85.1) 12/25/2016 Active cloNIDine HCl 0.1 MG Orally Twice a day Active Ciprofloxacin HCl 250 MG TAKE ONE TABLET BY MOUTH TWICE A DAY Oral; Duration: 7 Active predniSONE 10 MG TAKE 6 TABLETS BY [facility] ONCE A DAY Oral; Duration: 30 Active BD Pen Needle Mini U/F 31G X 5 MM USE TO INJECT INSULIN AT BEDTIME DIRECTED; Duration: 90 Active Lantus SoloStar 100 UNIT/ML INJECT 40 UN ITS SUBCUTANEOUSLY AT BEDTIME Subcutaneous; Duration: 37 Active Nifedical XL Active Immunizations Vaccine Route Administration Date Status Comme nts Influenza Unknown 06/18/2017 Administered Pneumococcal Unknown 07/31/2016 Administered Social History Tobacco use other than smoking: Question Answer Notes Are you an other tobacco user? No Problems Problem Type SNOMED Code ICD Code Onset Dates Problem Status W/U Status Risk Notes Problem Polyneuropathy due to diabetes mellitus type I (796958068) Type 1 diabetes mellitus with diabetic polyneuropathy (E10.42) Active confirmed Plan Of Treatment Pending Test Test Name Order Date [id number] NAIL, 6 OR MORE 12/25/2016 [id number] NAIL, 6 OR MORE 03/19/2017 Insurance Providers Payer Name Payer Address Payer Phone Subscriber Number Group Number Insured Name Patient Relationship to Insured Coverage Start Date Coverage End Date BlueCare 65 Medicare Preferred [address] [place] [address] [id number] Kamila Fontenot Self - patient is the insured Medical (General) History Medical History History ICD Code Anemia Chicken pox Diabetes mellitus Hiatal hernia High blood pressure Joint implants/screws Poor circulation Psoriasis/eczema Thyroid disorder Transfusions Vasculitis Surgical History Surgery Date(Month/Year) hysterectomy hip replacement
== END 2025-05-28 10:13 | disposition home or self-care (01) ==
LOC: HO.HKAS 09:25
PROVIDERS: PCP Internal Medicine; Visit Provider Internal Medicine Nephrology
DX: I12.9 Hypertensive chronic kidney disease with stage 1 through stage 4 chronic kidney disease, or unspecified chronic kidney disease (principal); N18.4 Chronic kidney disease, stage 4 (severe)
CPT/HCPCS: 99214

== ENCOUNTER → 2025-05-28 09:24 | Outpatient (BNVA) | payer MEDICARE, SELFPAY | PROVIDERS: PCP Internal Medicine; Visit Provider Internal Medicine Nephrology | DX: I12.9 Hypertensive chronic kidney disease with stage 1 through stage 4 chronic kidney disease, or unspecified chronic kidney disease (principal); N18.4 Chronic kidney disease, stage 4 (severe) | CPT/HCPCS: 99212 ==

== ENCOUNTER 2025-08-27 11:12 | Outpatient (AMB) | payer MEDICARE, SELFPAY ==
--- NOTE | 2025-08-27 11:41 | HO.NEPHOV_ITS ---
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 Her blood sugar is well controlled now. She does not have any joint pains or gout symptoms. She denies chest pain, shortness of breath, proximal nocturnal dyspnea, orthopnea, pedal edema, hypoglycemia or orthostatic symptoms. She does not take any nonsteroidal anti-inflammatory medications. Her urine output is good. There were no new active complaints at the time of this office visit. 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/antiplatelets Idiopathic gout Hyperlipidemia Essential hypertension Chronic kidney disease, stage 5 Anemia in chronic kidney disease Surgical History Heart valve replaced Hx of CABG History of hip replacement History of open heart surgery History of cholecystectomy History of hysterectomy Presence of aortocoronary bypass graft Family History Father Heart disease Mother Cancer Social History Alcohol intake: current Alcohol type: wine Patient Tobacco Use Status: Never used Tobacco Review of Systems Const All systems reviewed & are unremarkable except as noted in HPI and below Physical Exam Vital Signs: Last Vital Signs Pulse 55 08/27/25 11:44 BP 152/70 H 08/27/25 11:44 Pulse Ox 97 08/27/25 11:44 Oxygen Delivery Method Room Air 08/27/25 11:44 BMI result Body Mass Index 27.7 Const General: comfortable and no acute distress Orientation/consciousness: patient oriented x3 HEENT Head: Yes normocephalic Mouth: Normal oral and palatal mucosa present Eyes EOM: EOMs intact bilaterally Neck Neck: Yes supple Resp Auscultation: clear to auscultation bilaterally Cardio Jugular venous distension: no JVD Rate: regular rate GI Palpation (GI): Soft to palpation Auscultation: normal bowel sounds General: Yes no CVA tenderness Back/Spine/Pelvis Back: no CVA tenderness Skin General skin exam: no rashes or lesions noted Neuro General: patient oriented x3 and moves all extremities Extrem General: Yes no pedal edema Assessment & Plan Assessment & Plan (1) CKD (chronic kidney disease) stage 4, GFR 15-29 ml/min: Code(s): N18.4 - Chronic kidney disease, stage 4 (severe) Category: Medical (2) Essential hypertension: Code(s): I10 - Essential (primary) hypertension Category: Medical Plan Kamila has CKD stage 4. Her renal functions had been stable. Last 24 hour urine collection for creatinine clearance showed it to be 16.2 mls/minute. Blood pressure has been at goal. Her volume status is optimal. Her hemoglobin is close to goal. C/W with Farxiga 2.5 mg given diabetes, CKD and cardiac dysfunction. She can continue Uloric. She avoids nonsteroidal anti-inflammatory medications. I did not make any other medication changes today but had ordered follow up blood work and urine studies. All her questions were answered. Orders: Orders Blood Urea Nitrogen 3 Months I10 - Essential (primary) hypertension, N18.4 - Chronic kidney disease, stage 4 (severe) Creatinine 3 Months I10 - Essential (primary) hypertension, N18.4 - Chronic kidney disease, stage 4 (severe) Electrolytes 3 Months I10 - Essential (primary) hypertension, N18.4 - Chronic kidney disease, stage 4 (severe) Coding Level of Care Code Est Pt Level 4 (59352) Diagnoses CKD (chronic kidney disease) stage 4, GFR 15-29 ml/min N18.4 Essential hypertension I10
[2025-08-27 11:44] VITALS: BP 152/70; PULSE 55; O2SAT 97; BMI 27.7
--- OUTSIDE RECORDS SUMMARY | 2025-08-27 14:01 | XMS_ITS | Patient Health Record ---
Author Organization [facility] Address [address] [place] [address] Care Team Providers Care Drill Sharpener Operator Name Role Phone Solomon Juarez MD Primary Care Provider Kaitlynn Zhao Unavailable [phone] Allergies Allergen (clinical drug ingredient) Drug/Non Drug [...] predniSONE 10 MG TAKE 6 TABLETS BY [facility] ONCE A DAY Oral; Duration: 30 Active [...] Polyneuropathy due to diabetes mellitus type I (926730313) Type 1 diabetes mellitus with diabetic polyneuropathy (E10.42) Active confirmed Plan Of Treatment Pending Test Test Name Order Date [id number] NAIL, 6 OR MORE 12/25/2016 [id number] NAIL, 6 OR MORE 03/19/2017 Insurance Providers Payer Name Payer Address Payer Phone Subscriber Number Group Number Insured Name Patient Relationship to Insured Coverage Start Date Coverage End Date BlueCare 65 Medicare Preferred [address] [place] [address] [id number] Kamila Fonteont Self - patient is the insured Medical (General) History Medical History History ICD Code Anemia Chicken pox Diabetes mellitus Hiatal hernia High blood pressure Joint implants/screws Poor circulation Psoriasis/eczema Thyroid disorder Transfusions Vasculitis Surgical History Surgery Date(Month/Year) hysterectomy hip replacement
--- OUTSIDE RECORDS SUMMARY | 2025-08-27 14:01 | XMS_ITS | Clinical Summary ---
Author Organization [facility] Address [address] [place] [address] Phone Care Team Providers Care Weather Forcaster Name Role Phone Solomon Juarez MD Primary Care Provider [phone] Medications cyclophosphamide (CYTOXAN) 50 mg CapIndications:g ranulomatosis [...] VACCINES (1 of 2) 1963 OSTEOPOROSIS SCREENING INITIAL (ONE-TIME) 2009 DIABETIC EYE EXAM 11/06/2016 HEMOGLOBIN A1C 02/04/2017 11/06/2016 POTASSIUM LEVEL 05/31/2018 05/31/2017, 11/29, 11/06/2016 TSH LEVEL 05/31/2018 05/31/2017, 12/11/2016 RSV VACCINE (1 - 1-dose 75+ series) 2019 COVID-19 VACCINE (2 - Moderna risk series) 09/29/2021 09/01/2021 INFLUENZA VACCINE (#1) 2025 , 07/06/2020, 08/04/2019, Additional history exists SMOKING STATUS SCREENING (Once After 26 Yrs) Completed 05/31/2017 HEPATITIS A [...] EDT) SODIUM 142 135 - 145 mmol/L [facility] POTASSIUM 4.5 3.4 - 5.0 mmol/L [facility] CHLORIDE 104 98 - 108 mmol/L [facility] CO2 19(L) 23 - 32 mmol/L [facility] BUN 43(H) 8 - 25 mg/dL [facility] CREATININE 2.86(H) 0.60 - 1.50 mg/dL [facility] GLUCOSE 166(H) 70 - 110 mg/dL [facility] ALBUMIN 4.5 3.3 - 5.0 g/dL [facility] TOTAL PROTEIN 6.9 6.0 - 8.3 g/dL [facility] CALCIUM 9.6 8.5 - 10.5 mg/dL [facility] ALKALINE PHOSPHATASE 51 30 - 100 U/L [facility] TOTAL BILIRUBIN 0.2 0.0 - 1.0 mg/dL [facility] AST 16 9 - 32 U/L [facility] ALT 14 7 - 33 U/L [facility] GLOBULIN 2.4 1.9 - 4.1 g/dL [facility] EGFR 16(A) >60 mL/min/1. 73m2 [facility] Comment:Abnormal result. The normal range for eGFR is >60 mL/min/1.73m2. If this patient is -[place], please multiply the reported result by 1.21 ANION GAP 19(H) 3 - 17 mmol/L [facility] Blood 05/31/2017 1:35 PM EDT 05/31/2017 9:37 PM EDT us Jimmy Sanchez MD LAB BLOOD ORDERABLES Final Resul t [facility] [address] [place] [address] * TSH (05/31/2017 1:35 PM EDT) TSH 1.71 0.40 - 5.00 uIU/mL [facility] Blood 05/31/2017 1:35 PM EDT 05/31/2017 9:36 PM EDT Jimmy Sanchez MD LAB BLOOD ORDERABLES Final Resul t Performing Organization Address [facility] Co de Phone Number [address] [address] * (ABNORMAL) Hemoglobin A1c (11/06/2016 2:39 PM EST) HEMOGLOBIN A1C 9.4(H) 4.3 - 6.4 % [facility] CALC MEAN BLD GLUC 223 mg/dL [facility] Comment: There is no established normal range [...] 2:39 PM EST 11/06/2016 5:57 PM EST Jimmy Sanchez MD LAB BLOOD ORDERABLES Final Resul t Performing Organization Address City/[facility] Co de Phone Number [address] [phone] from Last 3 Months or Most Recently Relevant to Health Maintenance Insurance [employer] [place] MEDICARE PPO BLUE [place]AC[place] [address] [place] [address] MEDICARE PPO BLUE REPLACEMENT [facility] MEDICARE PPO [facility]UE REPLACEMENT [facility] MEDICARE PPO BLUE REPLACEMENT [facility] MEDICARE PPO BLUE REPLACEMENT [facility] MEDICARE PPO BLUE REPLACEMENT [facility] MEDICARE PPO BLUE REPLACEMENT [facility] MEDICARE PPO BLUE REPLACEMENT [facility] MEDICARE PPO BLUE REPLACEMENT Care Teams Weather Forcaster Relationship Specialty Start Date End Date Solomon Juarez MD [address] [place] [id number] PCP - General Internal Medicine 11/06/16 Additional Source Comments The information contained in this document represents components of the legal health record. It is not the complete legal health record.[facility]
--- OUTSIDE RECORDS SUMMARY | 2025-08-27 14:01 | XMS_ITS | Clinical Summary ---
Author Organization [facility] Facility Address [address] [address] Care Team Providers Care Medical Parasitologist Name Role Phone Solomon Juarez MD Primary Care Provider [phone] Allergies Active Allergy Reactions Criticality Noted Date [...] patient's age to complete this topic Insurance [facility] Care Teams Medical Parasitologist Relationship Specialty Start Date End Date Solomon Juarez MD [address] [place] [address], [address] [place] [address] PCP - General Internal Medicine 04/04/23
== END 2025-08-27 12:02 | disposition home or self-care (01) ==
LOC: HO.HKAS 11:13
PROVIDERS: PCP Internal Medicine; Visit Provider Internal Medicine Nephrology
DX: I12.9 Hypertensive chronic kidney disease with stage 1 through stage 4 chronic kidney disease, or unspecified chronic kidney disease (principal); N18.4 Chronic kidney disease, stage 4 (severe)
CPT/HCPCS: 99214

== ENCOUNTER → 2025-08-27 11:12 | Outpatient (BNVA) | payer MEDICARE, SELFPAY | PROVIDERS: PCP Internal Medicine; Visit Provider Internal Medicine Nephrology | DX: I12.9 Hypertensive chronic kidney disease with stage 1 through stage 4 chronic kidney disease, or unspecified chronic kidney disease (principal); N18.4 Chronic kidney disease, stage 4 (severe) | CPT/HCPCS: 99212 ==